=== PATIENT | female | born 1940 | race Caucasian/White ===

== ENCOUNTER 2023-08-27 14:03 | Observation (INO) | payer MEDICARE ==
[2023-08-27 15:10] LABS: #Basophils 0.1 10x3/uL (0.0-0.2); #Eosinphils 0.1 10x3/uL (0.0-0.5); #Monocytes 0.7 10x3/uL (0.0-1.1); #Neutrophils 6.3 10x3/uL (1.5-8.4); %Basophils 0.7 % (0.0-2.0); %Eosinophils 1.3 % (0.0-6.0); %Lymphocytes 19.9 % (18.0-47.0); %Monocytes 7.5 % (0.0-10.0); %Neutrophils 70.3 % (40.0-75.0); Hematocrit 42.4 % (34.9-44.5); Hemoglobin 13.8 g/dL (12.0-15.5); Mean Corpuscular HGB CONC 32.5 g/dL (32.0-36.0); Mean Corpuscular Hemoglobin 29.9 pg (27.0-33.0); Mean Corpuscular Volume 91.8 fl (81.6-98.3); Mean Platelet Volume 10.3 fl (7.4-10.4); Platelet Count 180 10x3/uL (150-450); Red Blood Cell (RBC) Count 4.62 10x6/uL (3.90-5.03); White Blood Cell (WBC) Count 8.9 10x3/uL (3.5-10.5)
[2023-08-27 15:22] LABS: ALT (SGPT) 45 U/L (8-55); AST (SGOT) 36 U/L (5-34); Albumin 4.2 g/dL (3.4-4.8); Alkaline Phosphatase 83 U/L (40-110); Anion Gap 16 mmol/L (10-20); BUN (Urea Nitrogen) 13 mg/dL (9.8-20.1); Bilirubin, Total 0.4 mg/dL (0.2-1.2); Calc. Creatinine Clearance 0 mL/min (70-130); Carbon Dioxide 22 mmol/L (23-31); Chloride 105 mmol/L (98-107); Estimated GFR 63; Globulin 2.7 g/dL (2.4-3.5); Glucose 126 mg/dL (83-110); Potassium 4.1 mmol/L (3.5-5.1); Protein, Total 6.9 g/dL (5.8-8.1); Sodium 139 mmol/L (136-145)
[2023-08-27 15:24] LABS: Troponin I 0.011 ng/mL (< 0.028)
[2023-08-27] MEDS ORDERED: Aspirin Chewable 81 MG TAB ONE (16:20)
[2023-08-27] MEDS ORDERED: Metoprolol Tartrate 25 MG TAB ONE (16:28)
[2023-08-27] MEDS ORDERED: Bisacodyl 5 MG TAB PO PRN (16:59)
[2023-08-27] MEDS ORDERED: Ondansetron ODT 4 MG TAB PO PRN (16:59)
[2023-08-27] MEDS ORDERED: Acetaminophen 650 MG Suppository PR PRN (16:59)
[2023-08-27] MEDS ORDERED: Acetaminophen 325 MG TAB PO PRN (16:59)
[2023-08-27] MEDS ORDERED: Senokot S 8.6-50 MG TAB PO PRN (16:59)
[2023-08-27 17:50] LABS: Troponin I 0.018 ng/mL (< 0.028)
[2023-08-27 18:11] VITALS: BMI 41.5
[2023-08-27] MEDS: Famotidine 20 MG TAB PO SCH (21:23)
[2023-08-27 21:46] LABS: Troponin I 0.016 ng/mL (< 0.028)
[2023-08-28 05:09] LABS: Anion Gap 16 mmol/L (10-20); BUN (Urea Nitrogen) 11 mg/dL (9.8-20.1); Calc. Creatinine Clearance 94 mL/min (70-130); Carbon Dioxide 26 mmol/L (23-31); Cardiac Risk 3.9 (Less than 4.5); Chloride 107 mmol/L (98-107); Cholesterol 221 mg/dl (< 200 Desired); Estimated GFR 70; Glucose 107 mg/dL (83-110); HDL Cholesterol 56 mg/dL (>60 Neg Risk); LDL Cholesterol, Calculated 144 mg/dL; Potassium 4.4 mmol/L (3.5-5.1); Sodium 145 mmol/L (136-145); Triglycerides 106 mg/dL (Less than 150)
[2023-08-28] MEDS ORDERED: Furosemide 40 MG TAB PO SCH (07:30)
[2023-08-28] MEDS: Famotidine 20 MG TAB PO SCH (08:52)
[2023-08-28] MEDS ORDERED: Ezetimibe 10 MG TAB PO SCH (09:00)
[2023-08-28] MEDS ORDERED: Aspirin Chewable 81 MG TAB PO SCH (09:00)
[2023-08-28 12:29] VITALS: BP 157/77; TEMP 98.6
[2023-08-28] MEDS ORDERED: Apixaban 5 MG TAB PO SCH (21:00)
== END 2023-08-28 14:55 | disposition home or self-care (01) ==
LOC: CSHERS 14:03 → CSHTELE 16:35
PROVIDERS: ADMIT Family Medicine; ATTEND Family Medicine
DX: I48.4 Atypical atrial flutter (principal); R00.0 Tachycardia, unspecified; I48.91 Unspecified atrial fibrillation; I49.5 Sick sinus syndrome; I10 Essential (primary) hypertension; I08.1 Rheumatic disorders of both mitral and tricuspid valves; G47.33 Obstructive sleep apnea (adult) (pediatric); E78.5 Hyperlipidemia, unspecified; E03.9 Hypothyroidism, unspecified; K21.9 Gastro-esophageal reflux disease without esophagitis; E66.9 Obesity, unspecified; Z68.41 Body mass index [BMI] 40.0-44.9, adult; Z88.8 Allergy status to other drugs, medicaments and biological substances; Z96.653 Presence of artificial knee joint, bilateral; Z79.899 Other long term (current) drug therapy
CPT/HCPCS: 36415; 71045; 80048; 80053; 80061; 84484; 85025; 93005; 93306; 96372; G0378; J1650

== ENCOUNTER 2024-06-03 11:39 | Inpatient (IN) | payer MEDICARE ==
[2024-06-03 12:08] LABS: #Basophils 0.06 10x3/uL (0.0-0.2); #Eosinphils 0.18 10x3/uL (0.0-0.5); #Neutrophils 8.85 10x3/uL (1.5-8.4); %Basophils 0.5 % (0.0-2.0); %Eosinophils 1.5 % (0.0-6.0); %Lymphocytes 17.2 % (18.0-47.0); %Monocytes 5.1 % (0.0-10.0); %Neutrophils 74.9 % (40.0-75.0); Hematocrit 32.6 % (34.9-44.5); Hemoglobin 11.1 g/dL (12.0-15.5); Mean Corpuscular Hemoglobin 31.1 pg (27.0-33.0); Mean Corpuscular Volume 91.3 fL (81.6-98.3); Mean Platelet Volume 9.7 fL (7.4-10.4); Platelet Count 263 10x3/uL (150-450); RBC Distribution Width 14.4 % (11.5-14.5); Red Blood Cell (RBC) Count 3.57 10x6/uL (3.90-5.03); White Blood Cell (WBC) Count 11.8 10x3/uL (3.5-10.5)
[2024-06-03 12:30] LABS: ALT (SGPT) 37 U/L (8-55); AST (SGOT) 23 U/L (5-34); Albumin 3.4 g/dL (3.4-4.8); Alkaline Phosphatase 90 U/L (40-110); Anion Gap 14 mmol/L (10-20); BUN (Urea Nitrogen) 12 mg/dL (9.8-20.1); Bilirubin, Total 0.8 mg/dL (0.2-1.2); Calc. Creatinine Clearance 0 mL/min (70-130); Calcium 8.7 mg/dL (7.8-10.44); Carbon Dioxide 23 mmol/L (23-31); Chloride 94 mmol/L (98-107); Estimated GFR 71; Globulin 2.9 g/dL (2.4-3.5); Glucose 187 mg/dL (83-110); Lipase 30 U/L (8-78); Magnesium 1.9 mg/dL (1.6-2.6); Potassium 4.6 mmol/L (3.5-5.1); Protein, Total 6.3 g/dL (5.8-8.1); Sodium 126 mmol/L (136-145)
[2024-06-03 12:32] LABS: Troponin I Less than 0.010 ng/mL (< 0.028)
[2024-06-03 13:23] LABS: Influenza A by NAA Not Detected (NotDetected); Influenza B by NAA Not Detected (NotDetected); SARS-CoV-2 NAA Rapid Test DETECTED (NotDetected)
[2024-06-03] MEDS ORDERED: Furosemide 40 MG (4 mL) VIAL ONE (13:23)
[2024-06-03] MEDS ORDERED: Nitroglycerin 0.4 MG TAB 1 EACH ONE (13:24)
[2024-06-03] MEDS ORDERED: Acetaminophen 325 MG TAB PO PRN (15:49)
[2024-06-03] MEDS ORDERED: Senokot S 8.6-50 MG TAB PO PRN (15:49)
[2024-06-03 20:01] VITALS: BMI 41.5
[2024-06-03] MEDS: Apixaban 5 MG TAB PO SCH (20:51)
[2024-06-03] MEDS: Famotidine 20 MG TAB PO SCH (20:52)
[2024-06-03] MEDS: Guaifenesin DM 100-10/5 ML UDCUP PO PRN (22:21)
[2024-06-04 05:22] LABS: Anion Gap 11 mmol/L (10-20); BUN (Urea Nitrogen) 12 mg/dL (9.8-20.1); Calc. Creatinine Clearance 95 mL/min (70-130); Calcium 9.2 mg/dL (7.8-10.44); Carbon Dioxide 30 mmol/L (23-31); Chloride 98 mmol/L (98-107); Estimated GFR 71; Glucose 104 mg/dL (83-110); Potassium 5.1 mmol/L (3.5-5.1); Sodium 134 mmol/L (136-145)
[2024-06-04 05:33] LABS: #Basophils 0.07 10x3/uL (0.0-0.2); #Eosinphils 0.24 10x3/uL (0.0-0.5); #Monocytes 0.86 10x3/uL (0.0-1.1); #Neutrophils 7.09 10x3/uL (1.5-8.4); %Basophils 0.7 % (0.0-2.0); %Eosinophils 2.3 % (0.0-6.0); %Lymphocytes 21.6 % (18.0-47.0); %Monocytes 8.1 % (0.0-10.0); %Neutrophils 66.8 % (40.0-75.0); Hematocrit 32.5 % (34.9-44.5); Hemoglobin 10.8 g/dL (12.0-15.5); Mean Corpuscular HGB CONC 33.2 g/dL (32.0-36.0); Mean Corpuscular Hemoglobin 30.9 pg (27.0-33.0); Mean Corpuscular Volume 93.1 fL (81.6-98.3); Platelet Count 255 10x3/uL (150-450); RBC Distribution Width 14.5 % (11.5-14.5); Red Blood Cell (RBC) Count 3.49 10x6/uL (3.90-5.03); White Blood Cell (WBC) Count 10.6 10x3/uL (3.5-10.5)
[2024-06-04] MEDS: Furosemide 40 MG (4 mL) VIAL SLOW IVP SCH ×2 (09:49→18:06)
[2024-06-04 16:56] LABS: Anion Gap 12 mmol/L (10-20); BUN (Urea Nitrogen) 13 mg/dL (9.8-20.1); Calc. Creatinine Clearance 103 mL/min (70-130); Calcium 9.6 mg/dL (7.8-10.44); Carbon Dioxide 31 mmol/L (23-31); Chloride 93 mmol/L (98-107); Estimated GFR 75; Glucose 98 mg/dL (83-110); Potassium 4.1 mmol/L (3.5-5.1); Sodium 132 mmol/L (136-145)
[2024-06-05 06:26] LABS: Anion Gap 14 mmol/L (10-20); BUN (Urea Nitrogen) 11 mg/dL (9.8-20.1); Calc. Creatinine Clearance 101 mL/min (70-130); Carbon Dioxide 30 mmol/L (23-31); Chloride 93 mmol/L (98-107); Estimated GFR 74; Potassium 3.9 mmol/L (3.5-5.1); Sodium 133 mmol/L (136-145)
[2024-06-05 06:27] LABS: Calcium 9.5 mg/dL (7.6-10.4); Glucose 107 mg/dL (83-110)
[2024-06-05 06:30] LABS: #Basophils 0.08 10x3/uL (0.0-0.2); #Monocytes 0.84 10x3/uL (0.0-1.1); %Basophils 0.7 % (0.0-2.0); %Eosinophils 1.7 % (0.0-6.0); %Lymphocytes 20.5 % (18.0-47.0); %Monocytes 7.1 % (0.0-10.0); %Neutrophils 69.6 % (40.0-75.0); Hematocrit 36.2 % (34.9-44.5); Hemoglobin 12.3 g/dL (12.0-15.5); Mean Corpuscular Hemoglobin 31.4 pg (27.0-33.0); Mean Corpuscular Volume 92.3 fL (81.6-98.3); Mean Platelet Volume 9.9 fL (7.4-10.4); Platelet Count 274 10x3/uL (150-450); RBC Distribution Width 14.1 % (11.5-14.5); Red Blood Cell (RBC) Count 3.92 10x6/uL (3.90-5.03); White Blood Cell (WBC) Count 11.8 10x3/uL (3.5-10.5)
[2024-06-05] MEDS: Furosemide 40 MG (4 mL) VIAL SLOW IVP SCH (06:30)
[2024-06-05 13:32] VITALS: BP 124/63; TEMP 97
[2024-06-05 13:34] VITALS: BMI 43.4
== END 2024-06-05 14:16 | disposition home or self-care (01) | DRG 177 ==
LOC: CSHERS 11:39 → CSHERHOLD 14:30 → CSHTELE 17:57
PROVIDERS: ADMIT Hospitalist; ATTEND Hospitalist
DX: U07.1 COVID-19 (principal); I50.31 Acute diastolic (congestive) heart failure; J96.01 Acute respiratory failure with hypoxia; E66.2 Morbid (severe) obesity with alveolar hypoventilation; Z68.41 Body mass index [BMI] 40.0-44.9, adult; I48.92 Unspecified atrial flutter; I11.0 Hypertensive heart disease with heart failure; I48.0 Paroxysmal atrial fibrillation; E78.5 Hyperlipidemia, unspecified; I44.0 Atrioventricular block, first degree; K21.9 Gastro-esophageal reflux disease without esophagitis; Z96.659 Presence of unspecified artificial knee joint; Z88.8 Allergy status to other drugs, medicaments and biological substances; Z79.891 Long term (current) use of opiate analgesic; Z79.899 Other long term (current) drug therapy; Z98.49 Cataract extraction status, unspecified eye
CPT/HCPCS: 36415; 71045; 80048; 80053; 83690; 83735; 83880; 84443; 84484; 85025; 93005; 93306; 94760; 96374; 97139; J1940

== ENCOUNTER 2024-08-10 11:36 | Inpatient (IN) | payer MEDICARE ==
[~2024-08-10 11:36] MED LIST: Iopamidol 370 76% 100 ML VIAL ONE
[2024-08-10 12:49] LABS: #Basophils 0.05 10x3/uL (0.0-0.2); #Eosinphils 0.19 10x3/uL (0.0-0.5); #Monocytes 0.73 10x3/uL (0.0-1.1); #Neutrophils 7.67 10x3/uL (1.5-8.4); %Basophils 0.5 % (0.0-2.0); %Eosinophils 1.9 % (0.0-6.0); %Lymphocytes 11.7 % (18.0-47.0); %Monocytes 7.4 % (0.0-10.0); %Neutrophils 78.1 % (40.0-75.0); Hematocrit 34.3 % (34.9-44.5); Hemoglobin 11.2 g/dL (12.0-15.5); Mean Corpuscular HGB CONC 32.7 g/dL (32.0-36.0); Mean Corpuscular Volume 88.9 fL (81.6-98.3); Mean Platelet Volume 10.7 fL (7.4-10.4); Platelet Count 152 10x3/uL (150-450); RBC Distribution Width 14.8 % (11.5-14.5); Red Blood Cell (RBC) Count 3.86 10x6/uL (3.90-5.03); White Blood Cell (WBC) Count 9.8 10x3/uL (3.5-10.5)
[2024-08-10 13:08] LABS: ALT (SGPT) 35 U/L (8-55); AST (SGOT) 26 U/L (5-34); Albumin 3.3 g/dL (3.4-4.8); Alkaline Phosphatase 89 U/L (40-110); Anion Gap 13 mmol/L (10-20); BUN (Urea Nitrogen) 15 mg/dL (9.8-20.1); Bilirubin, Total 0.9 mg/dL (0.2-1.2); Calc. Creatinine Clearance 0 mL/min (70-130); Carbon Dioxide 23 mmol/L (23-31); Chloride 98 mmol/L (98-107); Estimated GFR 66; Globulin 3.3 g/dL (2.4-3.5); Glucose 137 mg/dL (83-110); Potassium 4.4 mmol/L (3.5-5.1); Protein, Total 6.6 g/dL (5.8-8.1); Sodium 130 mmol/L (136-145)
[2024-08-10 13:12] LABS: Troponin I 0.016 ng/mL (< 0.028)
[2024-08-10] MEDS ORDERED: Furosemide 40 MG (4 mL) VIAL ONE (15:35)
[2024-08-10] MEDS ORDERED: Ondansetron PF 4 MG/2 ML Vial IVP PRN (16:02)
[2024-08-10 16:57] LABS: Troponin I 0.013 ng/mL (< 0.028)
[2024-08-10 18:39] VITALS: BMI 46.5
[2024-08-10 19:59] LABS: Troponin I 0.016 ng/mL (< 0.028)
[2024-08-10] MEDS: Apixaban 5 MG TAB PO SCH (20:52)
[2024-08-11 04:07] LABS: #Basophils 0.06 10x3/uL (0.0-0.2); #Eosinphils 0.25 10x3/uL (0.0-0.5); #Monocytes 1.07 10x3/uL (0.0-1.1); #Neutrophils 6.41 10x3/uL (1.5-8.4); %Basophils 0.6 % (0.0-2.0); %Eosinophils 2.5 % (0.0-6.0); %Lymphocytes 20.5 % (18.0-47.0); %Monocytes 10.9 % (0.0-10.0); %Neutrophils 65.2 % (40.0-75.0); Hematocrit 34.9 % (34.9-44.5); Hemoglobin 11.1 g/dL (12.0-15.5); Mean Corpuscular HGB CONC 31.8 g/dL (32.0-36.0); Mean Corpuscular Hemoglobin 28.7 pg (27.0-33.0); Mean Corpuscular Volume 90.2 fL (81.6-98.3); Mean Platelet Volume 11.2 fL (7.4-10.4); Platelet Count 164 10x3/uL (150-450); RBC Distribution Width 14.9 % (11.5-14.5); Red Blood Cell (RBC) Count 3.87 10x6/uL (3.90-5.03); White Blood Cell (WBC) Count 9.8 10x3/uL (3.5-10.5)
[2024-08-11 04:56] LABS: Anion Gap 16 mmol/L (10-20); BUN (Urea Nitrogen) 15 mg/dL (9.8-20.1); Calc. Creatinine Clearance 98 mL/min (70-130); Calcium 9.4 mg/dL (7.8-10.44); Carbon Dioxide 25 mmol/L (23-31); Chloride 101 mmol/L (98-107); Estimated GFR 65; Glucose 98 mg/dL (83-110); Magnesium 2.1 mg/dL (1.6-2.6); Sodium 138 mmol/L (136-145)
[2024-08-11] MEDS: Furosemide 40 MG TAB PO SCH (09:03)
[2024-08-11] MEDS: Senokot S 8.6-50 MG TAB PO PRN (09:43)
[2024-08-11] MEDS: hydrALAZINE 25 MG TAB PO SCH (11:51)
[2024-08-11] MEDS: Furosemide 40 MG (4 mL) VIAL SLOW IVP SCH (14:23)
[2024-08-11] MEDS: Nystatin Powder 15 GM BOT TOP PRN (18:24)
[2024-08-11] MEDS: traMADol HCl 50 MG TAB PO PRN (18:24)
[2024-08-11] MEDS: Bisacodyl 10 MG SUPP PR SCH ×2 (21:22→21:23)
[2024-08-12 04:04] LABS: #Basophils 0.05 10x3/uL (0.0-0.2); #Eosinphils 0.26 10x3/uL (0.0-0.5); #Monocytes 1.14 10x3/uL (0.0-1.1); %Basophils 0.5 % (0.0-2.0); %Eosinophils 2.5 % (0.0-6.0); %Lymphocytes 19.4 % (18.0-47.0); %Monocytes 10.8 % (0.0-10.0); %Neutrophils 66.4 % (40.0-75.0); Hematocrit 38.3 % (34.9-44.5); Mean Corpuscular HGB CONC 31.3 g/dL (32.0-36.0); Mean Corpuscular Hemoglobin 28.4 pg (27.0-33.0); Mean Corpuscular Volume 90.5 fL (81.6-98.3); Mean Platelet Volume 10.7 fL (7.4-10.4); Platelet Count 158 10x3/uL (150-450); RBC Distribution Width 14.7 % (11.5-14.5); Red Blood Cell (RBC) Count 4.23 10x6/uL (3.90-5.03); White Blood Cell (WBC) Count 10.5 10x3/uL (3.5-10.5)
[2024-08-12 04:14] LABS: Anion Gap 16 mmol/L (10-20); BUN (Urea Nitrogen) 17 mg/dL (9.8-20.1); Calc. Creatinine Clearance 106 mL/min (70-130); Calcium 9.6 mg/dL (7.8-10.44); Carbon Dioxide 28 mmol/L (23-31); Chloride 96 mmol/L (98-107); Estimated GFR 71; Glucose 103 mg/dL (83-110); Potassium 3.9 mmol/L (3.5-5.1); Sodium 136 mmol/L (136-145)
[2024-08-12] MEDS: BuPROPion XL 150 MG ER.TAB PO SCH (09:40)
[2024-08-12] MEDS: Ezetimibe 10 MG TAB PO SCH (09:40)
[2024-08-12] MEDS: Acetaminophen 325 MG TAB PO PRN (20:16)
[2024-08-13 04:06] LABS: #Basophils 0.09 10x3/uL (0.0-0.2); #Neutrophils 6.74 10x3/uL (1.5-8.4); %Basophils 0.8 % (0.0-2.0); %Eosinophils 2.7 % (0.0-6.0); %Lymphocytes 20.5 % (18.0-47.0); %Monocytes 15.2 % (0.0-10.0); %Neutrophils 60.4 % (40.0-75.0); Hemoglobin 13.4 g/dL (12.0-15.5); Mean Corpuscular HGB CONC 32.7 g/dL (32.0-36.0); Mean Corpuscular Hemoglobin 29.3 pg (27.0-33.0); Mean Corpuscular Volume 89.5 fL (81.6-98.3); Mean Platelet Volume 10.5 fL (7.4-10.4); Platelet Count 181 10x3/uL (150-450); RBC Distribution Width 14.6 % (11.5-14.5); Red Blood Cell (RBC) Count 4.58 10x6/uL (3.90-5.03); White Blood Cell (WBC) Count 11.2 10x3/uL (3.5-10.5)
[2024-08-13 04:12] LABS: Anion Gap 17 mmol/L (10-20); BUN (Urea Nitrogen) 18 mg/dL (9.8-20.1); Calc. Creatinine Clearance 101 mL/min (70-130); Calcium 9.9 mg/dL (7.8-10.44); Carbon Dioxide 27 mmol/L (23-31); Chloride 93 mmol/L (98-107); Estimated GFR 67; Glucose 109 mg/dL (83-110); Magnesium 1.9 mg/dL (1.6-2.6); Potassium 3.9 mmol/L (3.5-5.1); Sodium 133 mmol/L (136-145)
[2024-08-13] MEDS: Loratadine 10 MG TAB PO SCH (07:12)
[2024-08-13] MEDS: Amlodipine 5 MG TAB PO SCH (09:46)
[2024-08-13 17:35] VITALS: BP 141/55; TEMP 98.1
== END 2024-08-13 18:02 | disposition home health service (06) | DRG 291 ==
LOC: CSHERS 11:36 → CSHTELE 16:00
PROVIDERS: ADMIT Family Medicine; ATTEND Family Medicine
DX: I11.0 Hypertensive heart disease with heart failure (principal); I50.33 Acute on chronic diastolic (congestive) heart failure; J96.11 Chronic respiratory failure with hypoxia; Z68.41 Body mass index [BMI] 40.0-44.9, adult; I48.0 Paroxysmal atrial fibrillation; Z88.8 Allergy status to other drugs, medicaments and biological substances; E78.00 Pure hypercholesterolemia, unspecified; Z98.890 Other specified postprocedural states; F32.A Depression, unspecified; E66.01 Morbid (severe) obesity due to excess calories; K21.9 Gastro-esophageal reflux disease without esophagitis; Z98.49 Cataract extraction status, unspecified eye; Z79.01 Long term (current) use of anticoagulants; I49.5 Sick sinus syndrome
CPT/HCPCS: 36415; 71045; 71275; 80048; 80053; 83735; 83880; 84484; 85025; 85379; 93005; 94760; 94762; 96374; J1940; Q9967

== ENCOUNTER 2024-11-25 10:46 | Inpatient (IN) | payer MEDICARE ==
[2024-11-25 11:24] LABS: #Basophils 0.07 10x3/uL (0.0-0.2); #Eosinophils 0.19 10x3/uL (0.0-0.5); #Neutrophils 8.94 10x3/uL (1.5-8.4); %Basophils 0.6 % (0.0-2.0); %Eosinophils 1.6 % (0.0-6.0); %Lymphocytes 12.8 % (18.0-47.0); %Monocytes 6.9 % (0.0-10.0); %Neutrophils 77.7 % (40.0-75.0); Hematocrit 37.7 % (34.9-44.5); Hemoglobin 11.9 g/dL (12.0-15.5); Mean Corpuscular HGB CONC 31.6 g/dL (32.0-36.0); Mean Corpuscular Hemoglobin 27.7 pg (27.0-33.0); Mean Corpuscular Volume 87.7 fL (81.6-98.3); Mean Platelet Volume 10.8 fL (7.4-10.4); Platelet Count 143 10x3/uL (150-450); RBC Distribution Width 14.9 % (11.5-14.5); White Blood Cell (WBC) Count 11.5 10x3/uL (3.5-10.5)
[2024-11-25 11:43] LABS: ALT (SGPT) 35 U/L (8-55); AST (SGOT) 25 U/L (5-34); Albumin 3.7 g/dL (3.4-4.8); Alkaline Phosphatase 94 U/L (40-110); Anion Gap 15 mmol/L (10-20); BUN (Urea Nitrogen) 15 mg/dL (9.8-20.1); Calc. Creatinine Clearance 0 mL/min (70-130); Calcium 9.2 mg/dL (7.8-10.44); Carbon Dioxide 24 mmol/L (23-31); Chloride 100 mmol/L (98-107); Estimated GFR 69; Globulin 3.2 g/dL (2.4-3.5); Glucose 131 mg/dL (83-110); Potassium 4.4 mmol/L (3.5-5.1); Protein, Total 6.9 g/dL (5.8-8.1); Sodium 135 mmol/L (136-145)
[2024-11-25 11:47] LABS: Troponin I 0.021 ng/mL (< 0.028)
[2024-11-25] MEDS ORDERED: Furosemide 40 MG (4 mL) VIAL ONE (12:01)
[2024-11-25] MEDS ORDERED: Nitroglycerin 2% Ointment 1 INCH/1 GM Packet ONE (12:14)
[2024-11-25 12:50] LABS: Bilirubin Neg (Negative); Blood, Urine Negative (Negative); Clarity Clear (Clear); Glucose, Urine (Dipstick) Normal (Negative); Ketone, Urine Negative (Negative); Leukocyte Negative (Negative); Nitrite Negative (Negative); Protein, Urine (Dipstick) Negative (Neg-Trace); Urobilinogen Normal mg/dL (Less than 2)
[2024-11-25 13:08] LABS: Bacteria/HPF Rare-Few HPF (None Seen); CAUTI Indications for Culture Pelvic or flank pain; RBC/HPF None Seen HPF (0-3); WBC/HPF 0-3 HPF (0-3)
[2024-11-25 13:09] LABS: Urine Culture Reflex No No
[2024-11-25] MEDS ORDERED: Calcium Carbonate 500 MG ChewTAB PO PRN (13:27)
[2024-11-25] MEDS ORDERED: Senokot S 8.6-50 MG TAB PO PRN (13:27)
[2024-11-25] MEDS ORDERED: Acetaminophen 650 MG Suppository PR PRN (13:27)
[2024-11-25] MEDS ORDERED: Ondansetron ODT 4 MG TAB PO PRN (13:27)
[2024-11-25] MEDS ORDERED: Ondansetron PF 4 MG/2 ML Vial IVP PRN (13:27)
[2024-11-25] MEDS ORDERED: Furosemide 40 MG (4 mL) VIAL SLOW IVP SCH (14:00)
[2024-11-25 15:20] VITALS: BMI 40.0
[2024-11-25] MEDS: Carvedilol 6.25 MG TAB PO SCH (18:40)
[2024-11-25] MEDS: Melatonin 3 MG TAB PO SCH (20:46)
[2024-11-25] MEDS: Furosemide 40 MG (4 mL) VIAL SLOW IVP SCH (20:46)
[2024-11-25] MEDS: Famotidine 20 MG TAB PO SCH (20:46)
[2024-11-25] MEDS: Apixaban 5 MG TAB PO SCH (20:46)
[2024-11-25] MEDS: Loratadine 10 MG TAB PO SCH (20:46)
[2024-11-26] MEDS: Cholestyramine/Aspartame 4 gm Packet PO SCH (01:53)
[2024-11-26 05:06] LABS: #Eosinophils 0.25 10x3/uL (0.0-0.5); #Monocytes 1.16 10x3/uL (0.0-1.1); #Neutrophils 9.24 10x3/uL (1.5-8.4); %Basophils 0.8 % (0.0-2.0); %Lymphocytes 13.6 % (18.0-47.0); %Monocytes 9.3 % (0.0-10.0); %Neutrophils 74.1 % (40.0-75.0); Hemoglobin 12.5 g/dL (12.0-15.5); Mean Corpuscular HGB CONC 32.9 g/dL (32.0-36.0); Mean Corpuscular Hemoglobin 28.8 pg (27.0-33.0); Mean Corpuscular Volume 87.6 fL (81.6-98.3); Mean Platelet Volume 10.7 fL (7.4-10.4); Platelet Count 152 10x3/uL (150-450); RBC Distribution Width 14.9 % (11.5-14.5); Red Blood Cell (RBC) Count 4.34 10x6/uL (3.90-5.03); White Blood Cell (WBC) Count 12.47 10x3/uL (3.5-10.5)
[2024-11-26 05:15] LABS: Anion Gap 16 mmol/L (10-20); BUN (Urea Nitrogen) 15 mg/dL (9.8-20.1); Calc. Creatinine Clearance 91 mL/min (70-130); Calcium 9.4 mg/dL (7.8-10.44); Carbon Dioxide 28 mmol/L (23-31); Chloride 96 mmol/L (98-107); Estimated GFR 71; Glucose 103 mg/dL (83-110); Potassium 4.3 mmol/L (3.5-5.1); Sodium 136 mmol/L (136-145)
[2024-11-26] MEDS: Furosemide 40 MG (4 mL) VIAL SLOW IVP SCH (06:11)
[2024-11-26] MEDS ORDERED: Metoprolol Succinate XL 25 MG ER.TAB PO SCH (09:00)
[2024-11-26] MEDS: Carvedilol 6.25 MG TAB PO SCH (09:51)
[2024-11-26] MEDS: Fish Oil 1,000 MG CAP PO SCH (09:51)
[2024-11-26] MEDS: Ezetimibe 10 MG TAB PO SCH (09:51)
[2024-11-26] MEDS: CO Q-10 CAPSULE 50 MG PO SCH (09:52)
[2024-11-26] MEDS: Potassium Chloride 20 MEQ TAB PO SCH (09:52)
[2024-11-26] MEDS: BuPROPion XL 150 MG ER.TAB PO SCH (09:52)
[2024-11-26] MEDS: MAGNESIUM GLYCINATE MAG OXIDE PO SCH (13:35)
[2024-11-26] MEDS: [UNRECOGNIZED DRUG - OTHER] PO SCH (13:35)
[2024-11-27 04:55] LABS: Anion Gap 14 mmol/L (10-20); BUN (Urea Nitrogen) 20 mg/dL (9.8-20.1); Calc. Creatinine Clearance 79 mL/min (70-130); Calcium 9.7 mg/dL (7.8-10.44); Carbon Dioxide 29 mmol/L (23-31); Chloride 95 mmol/L (98-107); Estimated GFR 62; Glucose 119 mg/dL (83-110); Potassium 3.7 mmol/L (3.5-5.1); Sodium 134 mmol/L (136-145)
[2024-11-27] MEDS: Furosemide 40 MG TAB PO SCH (08:42)
[2024-11-27] MEDS: guaiFENesin ER 600 MG TAB PO SCH (10:22)
[2024-11-27] MEDS: Acetaminophen 325 MG TAB PO PRN (18:06)
[2024-11-28] MEDS: Benzonatate 100 MG CAP PO PRN (02:44)
[2024-11-28 13:53] VITALS: BP 126/47; TEMP 97.9
== END 2024-11-28 13:48 | disposition home or self-care (01) | DRG 291 ==
LOC: CSHERS 10:46 → CSHTELE 12:39 → OBSVTOIN 11-26 14:05
PROVIDERS: ADMIT Hospitalist; ATTEND Hospitalist
DX: I11.0 Hypertensive heart disease with heart failure (principal); I50.33 Acute on chronic diastolic (congestive) heart failure; J96.21 Acute and chronic respiratory failure with hypoxia; Z68.41 Body mass index [BMI] 40.0-44.9, adult; E78.5 Hyperlipidemia, unspecified; I48.0 Paroxysmal atrial fibrillation; E66.01 Morbid (severe) obesity due to excess calories; Z88.8 Allergy status to other drugs, medicaments and biological substances; K21.9 Gastro-esophageal reflux disease without esophagitis; G47.33 Obstructive sleep apnea (adult) (pediatric); Z98.49 Cataract extraction status, unspecified eye; Z98.890 Other specified postprocedural states; Z66 Do not resuscitate; Z79.01 Long term (current) use of anticoagulants; Z79.899 Other long term (current) drug therapy; F32.A Depression, unspecified
CPT/HCPCS: 36415; 71045; 80048; 80053; 81001; 83735; 83880; 84145; 84484; 85025; 93005; 94760; 94762; 96374; 96376; G0378; J1940